=== PATIENT | female | born 1950 | race Caucasian/White ===

== ENCOUNTER → 2020-05-18 13:14 | Outpatient (CLI) | payer MEDICARE, SELFPAY ==
--- NOTE | ~2020-05-18 | MM_ITS ---
EXAMINATION: MM screening kimmy BI w shyla HISTORY: Screening mammogram TECHNIQUE: Craniocaudal and mediolateral oblique 3-D tomosynthesis images were obtained and synthetic 2-D images were generated. CAD analysis was submitted and interpreted. COMPARISON: 11/19/2018 bilateral digital screening mammogram 11/08/2017 bilateral diagnostic digital mammogram and complete bilateral breast ultrasound 08/22/2016 diagnostic left digital mammogram and limited left breast ultrasound 08/16/2016 bilateral digital screening mammogram BREAST PARENCHYMAL COMPOSITION: There are scattered areas of fibroglandular density. FINDINGS: There is a stable circumscribed approximately 9 mm opacity posteriorly in the outer mid lef t breast which is unchanged since 08/16/2016. The benign mammographic features and the stability sinc e 08/16/2016 are consistent with benign process. There is an apparently new 4 mm circumscribed opacity in the posterior central right breast on MLO vi ew, not evidence previous studies; diagnostic right mammogram and targeted right breast ultrasound ar e recommended. There are stable bilateral axillary lymph nodes. No evidence of any other suspicious mass, calcificat ion, or architectural distortion to suggest malignancy in either breast otherwise. There has been no other suspicious interval change. IMPRESSION: 1. New 4 mm right breast mass 2. Diagnostic right mammogram and right breast ultrasound examination are recommended. BI-RADS Category 0: Incomplete: Needs additional imaging evaluation. Reviewed, dictated and finalized at location A. IMPRESSION: 1. New 4 mm right breast mass 2. Diagnostic right mammogram and right breast ultrasound examination are recom mended. BI-RADS Category 0: Incomplete: Needs additional imaging evaluation.
== END ==
PROVIDERS: Visit Provider Nurse Practitioner Obstetrics & Gynecology
DX: Z12.31 Encounter for screening mammogram for malignant neoplasm of breast (principal); R92.8 Other abnormal and inconclusive findings on diagnostic imaging of breast
CPT/HCPCS: 77063; 77067

== ENCOUNTER → 2020-06-11 08:44 | Outpatient (CLI) | payer MEDICARE, OTHER, SELFPAY ==
--- NOTE | ~2020-06-11 | MMUS_ITS ---
EXAMINATION: MM diagnostic mammo unilat RT, US breast RT limited HISTORY: 05/18/2020 report of new 4 mm right breast mass in posterior central right breast on MLO view TECHNIQUE: Additional 3-D tomosynthesis images of the right breast were performed and synthetic 2-D i mages were generated. CAD analysis was submitted and interpreted. High resolution breast ultrasound w as performed. COMPARISON: 05/18/2020 bilateral digital screening mammogram FINDINGS: MAMMOGRAPHIC FINDINGS: An approximately 3 mm circumscribed mass is confirmed in the lower to mid outer right breast. ULTRASOUND: Ultrasound imaging at 6:00-10:00 reveals a 2.2 x 3.6 x 3.5 mm sonolucency consistent with simple cyst at 10:00 8 cm from the nipple, corresponding to the mammographic finding. IMPRESSION: 1. 3.6 mm simple cyst at 10:00 8 cm from nipple; no mammographic evidence of malignancy 2. Routine mammographic screening is recommended. BI-RADS Category 2: Benign finding(s). Reviewed, dictated and finalized at location A. IMPRESSION: 1. 3.6 mm simple cyst at 10:00 8 cm from nipple; no mammographic evidence of ma lignancy 2. Routine mammographic screening is recommended. BI-RADS Category 2: Benign finding(s).
== END ==
PROVIDERS: Visit Provider Nurse Practitioner Obstetrics & Gynecology
DX: R92.8 Other abnormal and inconclusive findings on diagnostic imaging of breast (principal)
CPT/HCPCS: 76642; 77065

== ENCOUNTER 2020-07-30 11:00 | Outpatient (RCR) | payer MEDICARE, OTHER, SELFPAY ==
--- NOTE | 2020-06-01 15:25 | PTOPEVAL ---
PHYSICAL THERAPY EVALUATION AND PLAN OF CARE Thank you for referring Lynette Cano to [facility]. Lynette is scheduled to participate in physical therapy 1x/week for 4 weeks. Please review, sign, date and return this plan of care AAYUSH. I agree with and certify that the following plan of care is medically necessary. Referring Physician Date Attending Provider: David Zuleta, DILCIA Evaluation Diagnosis bilateral knee OA, bilateral shoulder OA Onset 4 years Cause insidious Subjective Information Lynette is here today with Query Text:As Reported By Patient/ bilateral knee and shoulder Family pain. She states that 13 years ago she broke L1 and she notes that the stinging in her legs is likely as a result of that. She notes that the right knee is significantly worse and probably needs replaced but she cannot do that right now. 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 She had an injection in right knee 2 years ago with pain for at least 4 years. States that the shoulders have been bothering her for at least 2 years. Self Report Pain Assessment Bilateral Shoulder(s) Reported Pain Level 4 Pain Description Aching Additional Pain Comments states she feels she is losing mobility; wants to pain her house Bilateral Knee(s) Reported Pain Level 7 Pain Description Aching Pain Frequency Chronic,Continuous Lowest Pain Intensity 3 Greatest Pain Intensity 7 Pain Aggravating Factors Stair Climbing,Walking,Weight Bearing/Standing Pain Behaviors Anxious Pain Relief Interventions Used By Heat,Medication Patient Pain Score Pain Score 7,4: Self Report Upper Extremity Range of Motion Scapular/ Shoulder Range of Motion Bilateral Shoulder Flexion - Active 150 Shoulder Abduction - Active 115 Shoulder Medial Rotation - Active each reaches T12, but right is Query Text:Reach Behind the Back tighter Shoulder Lateral Rotation - Active normal Query Text:Reach Behin
--- NOTE | 2020-06-30 11:58 | PTOPEVAL ---
PHYSICAL THERAPY PLAN OF CARE UPDATE Thank you for referring Lynette Cano to [facility].? The patient is scheduled to be seen for therapy? 1x/week for 4 weeks. Please review, sign, date and return this plan of care AAYUSH. I agree with and certify that the following plan of care is medically necessary. Referring Physician Date Attending Provider: David Zuleta APRN Progress Diagnosis bilateral knee OA, bilateral shoulder OA Onset 4 years Cause insidious Subjective Information Reports that she does not Query Text:As Reported By Patient/ notice a big difference in her Family shoulders. Shoulders hurt first thing in the morning but not enough to take medication . Enjoys the manual therapy. Worse pain is at night when trying to sleep. Knees: since she has had injection to right knee it seems to be a lot better. the Left still hurts but not as much. Self Report Pain Assessment Bilateral Shoulder(s) Reported Pain Level 4 Pain Description Aching Additional Pain Comments more than left shoulder than the right Bilateral Knee(s) Reported Pain Level 2 Pain Description Aching Pain Frequency Chronic,Continuous Pain Aggravating Factors Stair Climbing,Walking,Weight Bearing/Standing Pain Behaviors Anxious Additional Pain Comments had an injection to right knee on 06/18/2020 Pain Score Pain Score 4,2: Self Report Upper Extremity Range of Motion Scapular/ Shoulder Range of Motion Bilateral Shoulder Flexion - Active 166 Shoulder Abduction - Active 160 Shoulder Medial Rotation - Active each reaches T10 Query Text:Reach Behind the Back Lower Extremity Range of Motion Knee Range of Motion Bilateral Knee Flexion Range of Motion - Active 122 Knee Flexion Range of Motion - Passive 0 Lower Extremity Muscle Strength Testing Hip Strength Bilateral Hip Flexion Strength 4+ Good + Hip Extension Strength 4- Good - Hip Abduction Strength 4- Good - Knee Strength Bilateral Knee Flexion Strength 4+ Good + Knee Extension Strength 4+ Good + Upper Extremity Muscle Strength Testing Scapular/Shoulder Bilateral Shoulder Flexion Strength 3+ Fair + Shoulder Extension Strength 4- Good - Shoulder Abduction Strength 3+ Fair + Shoulder Medial Rotation Strength
--- NOTE | 2020-07-23 07:46 | PCPTNOTE ---
Patient called & cancelled scheduled appointment this date no reason given.
--- NOTE | 2020-07-30 11:38 | PTOPEVAL ---
PHYSICAL THERAPY DISCHARGE NOTE Thank you for referring Lynette Cano to [facility].? Please review, sign, date and return this plan of care AAYUSH. I agree with and certify that the following plan of care is medically necessary. Referring Physician Date Attending Provider: David Zuleta, DILCIA Discharge Diagnosis bilateral knee OA, bilateral shoulder OA Onset 4 years Cause insidious Subjective Information States that the right knee Query Text:As Reported By Patient/ injection is not working Family anymore. She went shopping and the knee is really bother her now. Shoulders: still hurt. States exercising helps because she if goes a day without the exercises they do hurt a little more. Self Report Pain Assessment Bilateral Shoulder(s) Reported Pain Level 4 Pain Description Aching Additional Pain Comments more than left shoulder than the right Bilateral Knee(s) Reported Pain Level 2 Pain Description Aching Pain Frequency Chronic,Continuous Pain Aggravating Factors Stair Climbing,Walking,Weight Bearing/Standing Pain Behaviors Anxious Pain Score Pain Score 4,2: Self Report Upper Extremity Range of Motion Scapular/ Shoulder Range of Motion Bilateral Shoulder Flexion - Active 166 Shoulder Abduction - Active 160 Shoulder Medial Rotation - Active each reaches T10 Query Text:Reach Behind the Back Lower Extremity Muscle Strength Testing Hip Strength Bilateral Hip Flexion Strength 4+ Good + Hip Extension Strength 4- Good - Hip Abduction Strength 4 Good Knee Strength Bilateral Knee Flexion Strength 5 Normal Knee Extension Strength 5 Normal Upper Extremity Muscle Strength Testing Scapular/Shoulder Bilateral Shoulder Flexion Strength 4- Good - Shoulder Abduction Strength 4- Good - Shoulder Medial Rotation Strength 4+ Good + Shoulder Lateral Rotation Strength 4+ Good + Balance Assessment 5 Time Sit to Stand Time in Seconds 13.56 5 Time Sit to Stand Comments no arm rests, no knee pain Query Text:Normative Data: If Greater 1month ago = 20.01seconds; Than 15 Seconds, 74% Increase Risk for Recurrent Falls PT Clinical Summary Claribel has met or nearly met her functional goals. She continues to report pain in bilateral shoulders, but also
== END 2020-08-17 13:58 | disposition home or self-care (01) ==
LOC: ANHPT 11:00
PROVIDERS: PCP Nurse Practitioner; Visit Provider Nurse Practitioner
DX: M25.511 Pain in right shoulder (principal); M25.512 Pain in left shoulder; M25.561 Pain in right knee; M25.562 Pain in left knee
CPT/HCPCS: 97110; 97140; 97162

== ENCOUNTER 2021-07-14 08:04 | Outpatient (CLI) | payer MEDICARE, OTHER, SELFPAY ==
--- NOTE | 2021-07-14 12:22 | WPDPFTINT ---
PFT Procedure Performed PFT Procedure Performed Spirometry with Pre/Post Bronchodilator Plethysmography (Lung Vol) Diffusing Cap (DLCO) Flow Vol Loop PFT Interpretation This is a pulmonary function test with pre and post-bronchodilator spirometry, plethysmography and diffusing capacity. The test was performed and results interpreted in accordance with the 2019 and 2005 ATS/ERS Task Force guidelines respectively using the Global Lung Function Initiative-2012 reference equations. Patient demonstrated good effort and cooperation. Reproducibility criteria were met. The quality of the pre bronchodilator spirometry maneuver was Grade A and post bronchodilator spirometry maneuver was Grade A. Findings: Spirometry: The contour the inspiratory and expiratory flow tracing are normal. The pre bronchodilator FVC is 2.63 L, 79% predicted. The pre bronchodilator FEV1 is 2.04 L, 79% predicted. The FEV1: FVC ratio 78%. The post bronchodilator FVC is 2.61 L, representing 1% decrease. The post bronchodilator FEV1 is 2.14 L, representing a 5% increase. Plethysmography: The total lung capacity is 4.28 L, 76% predicted. The functional residual capacity is 1.69 L, 59% predicted. The residual volume is 1.43 L, 70% predicted. Diffusing capacity: The absolute diffusion capacity is 14.0, 60% predicted. The diffusing capacity corrected for alveolar volume is 3.68, 84% predicted. Impression: The spirometry is normal without evidence of an obstructive abnormality. There is no significant improvement after inhaling a single dose of albuterol. The lung volumes are normal. The absolute diffusing capacity is moderately decreased and normalizes when corrected for alveolar volume. There are no prior studies for comparison
--- NOTE | 2021-07-14 12:25 | WPDSIXMINUTE ---
Six Minute Walk Procedure Procedure Performed Pulmonary Stress Test (6 min walk) Six Minute Walk This is a 6 minute walk test. The test was performed and interpreted in accordance with the 2014 ERS/ATS task force guidelines. Findings: The patient's resting room air oxygen saturation measured by pulse oximetry was 94% and her heart rate was 113 bpm. Patient ambulated for 366 meters and oxygen saturation remained 93 to 95%. Heart rate at the end of the study was 105 bpm. The patient did not qualify for supplemental oxygen at rest or with ambulation. There are no prior studies for comparison.
== END 2021-07-14 08:05 | disposition home or self-care (01) ==
PROVIDERS: PCP Internal Medicine; Visit Provider Internal Medicine Critical Care Medicine
DX: R06.02 Shortness of breath (principal)
CPT/HCPCS: 94060; 94618; 94726; 94729

== ENCOUNTER 2021-11-05 07:43 | Outpatient (CLI) | payer MEDICARE, OTHER, SELFPAY ==
--- NOTE | 2021-11-05 08:00 | ECHO_ITS ---
Patient Info Name: Lynette Cano Age: 71 years : 1950 Gender: Female Ht: 64 in Wt: 190 lbs BSA: 2.01 m2 HR: 77 bpm BP: 148 / 84 mmHg Technical Quality: Fair Exam Date: 11/05/2021 8:11 AM Exam Location: [facility] Patient Status: Outpatient Admit Date: 11/05/2021 Staff Ordering Physician: Vidhya Curtis MD Activities Director Scouting: Caroline Lucas RDCS Attending Provider: Vidhya Curtis MD Referring Physician: Ever MADRID; Exam Type: CA echo doppler color flow Study Info Indications R06.02 - Shortness of breath Complete two-dimensional, color flow and Doppler transthoracic echocardiogram is performed. Summary 1. Complete two-dimensional, color flow and Doppler transthoracic echocardiogram is performed. 2. Left ventricular chamber dimension is normal. 3. Left ventricular systolic function is normal, estimated at 60-65%. 4. The left ventricular diastolic function is grade I diastolic dysfunction. 5. Left atrial chamber dimension is mildly enlarged. 6. No pulmonary hypertension, estimated pulmonary arterial systolic pressure is 17 mmHg. Left Ventricle Tissue doppler E/e' is not performed. Left ventricular chamber dimension is normal. Left ventricular systolic function is normal, estimated at 60-65%. The left ventricular diastolic function is grade I diastolic dysfunction. Right Ventricle Right ventricular chamber dimension is normal. Right ventricular systolic function is normal. Left Atria Left atrial chamber dimension is mildly enlarged. Right Atria Right atrial chamber dimension is normal. Aortic Valve The aortic valve is trileaflet. There is no aortic valve stenosis. There is no aortic valve regurgitation. Pulmonic Valve There is no pulmonic regurgitation. Mitral Valve There is no mitral valve stenosis. There is no mitral valve regurgitation. Tricuspid Valve There is no tricuspid valve regurgitation. No pulmonary hypertension, estimated pulmonary arterial systolic pressure is 17 mmHg. Pericardium/Pleural There is no pericardial effusion. Inferior Vena Cava Normal inferior vena cava with >50% collapse upon inspiration consistent with normal right atrial pressure, 5 mmHg. Aorta The aortic root size at the sinus of Valsalva is normal. Left Ventricular Outflow Tract Name Value Normal LVOT 2D LVOT Diameter 1.9 cm LVOT Doppler LVOT Peak Gradient 4 mmHg LVOT Mean Gradient 2 mmHg LVOT VTI 21 cm LVOT VTI/AV VTI Ratio 0.9 LVOT Stroke Volume 57 ml LVOT CO 4.3 l/min LVOT CI 2.1 l/min/m2 Pulmonic Valve Name Value Normal RVOT Doppler RVOT Peak Gradient 2 mmHg PV Doppler
== END 2021-11-05 07:44 | disposition home or self-care (01) ==
LOC: ANHCARD 07:44
PROVIDERS: PCP Internal Medicine; Visit Provider Internal Medicine Critical Care Medicine
DX: R06.02 Shortness of breath (principal)
CPT/HCPCS: 93306

== ENCOUNTER 2021-12-14 12:54 | Emergency (ER) | payer MEDICARE, OTHER, SELFPAY ==
[2021-12-14 13:08] VITALS: BP 142/91; PULSE 106; RESP 16; TEMP 36.5; O2SAT 97
--- NOTE | 2021-12-14 13:10 | ED.LOWEXIN ---
HPI - Extremity Injury (Lower) General Chief Complaint: Extremity Injury, Lower Stated Complaint: right knee pain Time Seen by Provider: 12/14/21 13:15 Source: patient, RN notes reviewed and old records reviewed Mode of arrival: ambulatory Limitations: no limitations History of Present Illness HPI Narrative: [facility] pain. Reports 9 days ago had increased activity walking most of the day on concrete sidewalks. Then sitting in a car for 2 days. Right knee usually feels better with rest. Reports walking some yesterday resting last evening. Increased pain today with movement. Usually takes Aleve and Aleve p.m. for arthritic pain. Pain medicine usually helps. Patient is concerned that right knee pain is worse and is concerned loss of cartilege/[id number] is causing increased right knee pain. Patient has an appointment for an evaluation for right knee replacement in 2 weeks. Some parts of this dictation were generated by voice recognition software and may contain typographical and/or grammatical inaccuracies. Related Data Home Medications Medication Instructions Recorded Confirmed raloxifene 60 mg tablet 60 mg PO DAILY 10/09/20 12/14/21 gabapentin 100 mg capsule 100 mg PO DAILY cap 06/24/21 12/14/21 meloxicam 15 mg tablet 15 mg PO DAILY tablet 08/13/21 12/14/21 Allergies Allergy/AdvReac Type Severity Reaction Status Date / Time cefaclor Allergy Unknown Hives Verified 11/18/21 13:01 Sulfa (Sulfonamide Allergy Unknown rash Verified 11/18/21 13:01 Antibiotics) Review of Systems Review of Systems: CONSTITUTIONAL: Denies fever, chills, or sweats. EYES: Denies visual changes, redness, or discharge. ENT: Denies rhinorrhea, congestion, sore throat, or otalgia. CARDIOVASCULAR: Denies chest pain, palpitations, or edema. RESPIRATORY: Denies cough or dyspnea. GASTROINTESTINAL: Denies abdominal pain, nausea, vomiting, or diarrhea. GENITOURINARY: Denies dysuria or hematuria. SKIN: Denies rash or itching. MUSCULOSKELETAL: Denies back pain. Increased right knee pain with activity, minimal pain relief after rest. Right knee swelling. History of osteoarthritis. NEUROLOGIC: Denies headache, numbness, or weakness. PSYCHIATRIC: Denies anxiety or depression. All other systems reviewed are negative, except as documented in HPI. All systems reviewed & are unremarkable except as noted in HPI and below PMFSH Past Medical History Medical History BMI 34.0-34.9,adult Essential (primary) hypertension Mixed hyperlipidemia Obstructive sleep apnea Primary osteoarthritis of both knees Recurrent major depressive disorder Family History Family History Grandparent Family history of malignant neoplasm of breast Father Family history of heart disease in male family member before age 55 Other Diabetes mellitus Family history of arthritis Family history of malignant neoplasm Hypertension Social History Social History Smoking status: Never smoker Second hand tobacco smoke exposure: No Alcohol intake: current Alcohol use details: social Substance use: never Substance use type: does not use Comments At the time of my signature, I reviewed and agree with the nursing past medical, surgical, social, and family history. There is no relevant family history pertinent to the patient complaint. Exam Narrative: GENERAL: This is a well-nourished, well-developed female, in no apparent distress. Uncomfortable due to right knee pain. HEAD: normocephalic, atraumatic. EYES: Sclera clear/white. Vision is grossly intact. EARS: External ears normal, auditory canals clear and without drainage. THROAT: Mucous membranes moist. NECK: Neck supple, full range of motion. CARDIOVASCULAR: Regular rate and rhythm without murmur
== END 2021-12-14 13:58 | disposition home or self-care (01) ==
PROVIDERS: Emergency Provider Nurse Practitioner Family
DX: M25.461 Effusion, right knee (principal); I10 Essential (primary) hypertension; E78.2 Mixed hyperlipidemia; G47.33 Obstructive sleep apnea (adult) (pediatric); M17.0 Bilateral primary osteoarthritis of knee
CPT/HCPCS: 99213; G0463

== ENCOUNTER 2022-01-27 13:58 | Outpatient (CLI) | payer MEDICARE, OTHER, SELFPAY ==
--- NOTE | ~2022-01-27 | CT_ITS ---
EXAMINATION: CT diagnostic chest wo con EXAM DATE: 01/27/2022 14:20 INDICATION: S22.39XA - Fracture of one rib, unspecified side, initial... TECHNIQUE: Spiral CT of the chest without contrast. Axial, coronal and sagittal images of the chest were reviewed. Coronal maximum intensity pixel images of chest reviewed. The dose-length product ( DLP) for this examination was 230.99 mGy-cm. The exposure was tailored according to patient size (au to mA exposure control), and iterative reconstruction (ASIR) was used as additional dose reduction te chnique. There is no prior study for comparison. FINDINGS: The lungs are clear. There are no pleural or pericardial effusions. Tracheobronchial t ree is patent. There is no mediastinal, hilar or axillary lymphadenopathy. There is no pneumothor ax. Heart normal in size. There is moderate coronary arterial calcification, arterial sclerosis. Upper abdomen is unremarkable. There is mild thoracic spondylosis without osteoblastic or osteolyt ic lesions identified. Chronic mild burst fracture of L1. There are subacute right 5th, 6th rib fra ctures anterolaterally. IMPRESSION: 1. Subacute right 5th, 6th rib fractures anterolaterally. 2. Clear lungs. Reviewed, dictated and finalized at location A.
== END 2022-01-27 13:59 | disposition home or self-care (01) ==
PROVIDERS: PCP Internal Medicine; Visit Provider Internal Medicine
DX: S22.41XA Multiple fractures of ribs, right side, initial encounter for closed fracture (principal); Z80.3 Family history of malignant neoplasm of breast
CPT/HCPCS: 71250

== ENCOUNTER → 2022-06-16 16:49 | Outpatient (CLI) | payer MEDICARE, OTHER, SELFPAY ==
--- NOTE | ~2022-06-16 | XR_ITS ---
EXAMINATION: XR tibia fibula RT 2V DATE: 06/16/2022 17:48 INDICATION: Anterior right tibia/fibular pain TECHNIQUE: AP and lateral views of the right tibia and fibula were obtained. COMPARISON: None. FINDINGS: Right total knee arthroplasty with patellar resurfacing which appears well seated in near-anatomic al ignment. No fracture. Joint space at the right ankle and visualized hindfoot appear normal. Soft tiss ues are unremarkable. IMPRESSION: 1. Expected appearance of a right total knee arthroplasty. Otherwise unremarkable right lower leg rad iographs. Reviewed, dictated and finalized at location A. IMPRESSION: 1. Expected appearance of a right total knee arthroplasty. Otherwise unremarkab le right lower leg radiographs.
== END ==
PROVIDERS: PCP Internal Medicine; Visit Provider Internal Medicine
DX: M79.604 Pain in right leg (principal); Z96.651 Presence of right artificial knee joint
CPT/HCPCS: 73590

== ENCOUNTER → 2022-06-28 11:19 | Outpatient (CLI) | payer MEDICARE, OTHER, SELFPAY ==
--- NOTE | ~2022-06-28 | US_ITS ---
EXAMINATION: US soft tissue LE RT DATE: 06/28/2022 11:37 INDICATION: Right lower leg pain. TECHNIQUE: Multiple grayscale and Doppler ultrasound images of the right lower limb were obtained. COMPARISON: Right tibia and fibula radiographs 06/16/2022 FINDINGS: There is no abnormal mass in the patient's area of concern in anterior right lower leg. IMPRESSION: 1. No abnormality in the patient's area of concern in anterior right lower leg. Reviewed, dictated and finalized at location A.
== END ==
PROVIDERS: PCP Internal Medicine; Visit Provider Internal Medicine
DX: M79.604 Pain in right leg (principal)
CPT/HCPCS: 76882

== ENCOUNTER 2023-05-17 16:30 | Emergency (ER) | payer MEDICARE, OTHER, SELFPAY ==
--- NOTE | ~2023-05-17 | XR_ITS ---
[XR ribs LT 2V w CXR 2V ] INDICATION: Left rib pain after recent fall TECHNIQUE: Frontal projection of the upper left ribs, frontal projection of the lower left ribs, obli que projection of all the left ribs, frontal inspiratory chest x-ray for interpretation. FINDINGS: There is an acute nondisplaced left ninth rib fracture. There are no soft tissue abnormalit y seen. The lungs are clear. There is moderate osteoarthritis of the shoulders. IMPRESSION: 1: Acute nondisplaced left ninth rib fracture. Reviewed, dictated and finalized at location A.
[2023-05-17 16:45] VITALS: BP 138/75; PULSE 95; RESP 18; TEMP 36.9; O2SAT 97
--- NOTE | 2023-05-17 17:24 | ED.FALL ---
HPI - Fall General Chief Complaint: Fall Stated Complaint: Flank Pain Source: patient Mode of arrival: ambulatory Limitations: no limitations History of Present Illness HPI Narrative: 73year old female who [id number] to express care with complaints of falling on Monday outside when she was chasing after dog on incline in yard. Patient states she had caught dog prior to fall and actualy fell with dog in her arms. Patient reports falling on left knee and on her left side with pain to area of left anterior ribs below breast area. Patient denies hitting her head or any LOC at time of fall. Patient denies any pain to her knee no swelling redness or bruising noted. Patient reports that she is suppose to have ear surgery on Monday in [facility] and she can't take any arthritis medication or any Ibuprofen or Aleve for her discomfort. MD complaint: fall Onset (ago): day(s) (4) Fall from: standing Fall witnessed: no Place fall occurred: other (outside) Loss of consciousness: none Severity scale (1-10): 8 Associated symptoms (after fall): other (pain left anterior ribs) Related Data Home Medications Medication Instructions Recorded Confirmed fluticasone propionate 50 2 spray intranasal DAILY 05/17/22 05/17/23 mcg/actuation nasal spray,suspension paroxetine HCl 40 mg tablet mg PO 05/17/23 05/17/23 Allergies Allergy/AdvReac Type Severity Reaction Status Date / Time cefaclor Allergy Unknown Hives Verified 05/17/23 17:01 Sulfa (Sulfonamide Allergy Unknown rash Verified 05/17/23 17:01 Antibiotics) Review of Systems Review of Systems: CONSTITUTIONAL: Denies fever, chills, or sweats. EYES: Denies visual changes, redness, or discharge. ENT: Denies rhinorrhea, congestion, sore throat, or otalgia. CARDIOVASCULAR: Denies chest pain, palpitations, or edema. RESPIRATORY: Denies cough or dyspnea. GASTROINTESTINAL: Denies abdominal pain, nausea, vomiting, or diarrhea. GENITOURINARY: Denies dysuria or hematuria. SKIN: Denies rash or itching. MUSCULOSKELETAL: Denies back pain, joint pain, or myalgia, reports left sided anterior rib pain NEUROLOGIC: Denies headache, numbness, or weakness. PSYCHIATRIC: positive history of anxiety or depression. All systems reviewed & are unremarkable except as noted in HPI and below PMFSH Past Medical History Medical History BMI 34.0-34.9,adult Essential (primary) hypertension Fracture of L1 vertebra Mixed hyperlipidemia Obstructive sleep apnea Primary osteoarthritis of both knees Recurrent major depressive disorder Surgical History Surgical History H/O tubal ligation History of tonsillectomy History of total right knee replacement Family History Family History Grandparent Family history of malignant neoplasm of breast Father Family history of heart disease in male family member before age 55 Other Diabetes mellitus Family history of arthritis Family history of malignant neoplasm Hypertension Social History Social History Smoking status: Never smoker Second hand tobacco smoke exposure: No Alcohol intake: never Substance use: never Substance use type: does not use Lack of Transportation: No Lack of Food: Never True Current Housing: I Have Housing Concerned About Future Housing: No Difficulty Paying Gas/Electric Bills: No Difficulty Paying for Meds: No Currently Unemployed: No Education: High School Diploma/GED Difficulty w/ Childcare or Family Care: No Comments At time of signature, agree with nursing past medical, surgical, social and family history. There is no relevant family history pertinent to the presenting complaint Exam Narrative: GENERAL: Well-appearing, well-nourished, and in no acute distress. HEAD: Normoce
== END 2023-05-17 17:57 | disposition home or self-care (01) ==
PROVIDERS: Emergency Provider Registered Nurse; PCP Family Medicine
DX: S22.32XA Fracture of one rib, left side, initial encounter for closed fracture (principal); W19.XXXA Unspecified fall, initial encounter; I10 Essential (primary) hypertension; E78.2 Mixed hyperlipidemia; M17.0 Bilateral primary osteoarthritis of knee; F33.9 Major depressive disorder, recurrent, unspecified; Z96.651 Presence of right artificial knee joint
CPT/HCPCS: 71046; 71100; 99213; G0463

== ENCOUNTER 2023-09-02 20:12 | Emergency (ER) | payer MEDICARE, OTHER, SELFPAY ==
[2023-09-02] VITALS (23 sets, daily range): BP systolic 138–164; BP diastolic 71–93; PULSE 70–103; RESP 11–22; TEMP 36.1; O2SAT 92–99
--- NOTE | ~2023-09-02 | CT_ITS ---
EXAMINATION: CT brain wo/w con DATE: 09/02/2023 23:49 INDICATION: Dizziness. TECHNIQUE: Computed tomography (CT) of the head was performed without and with 100 mL Omnipaque 350 i ntravenous contrast. The mA was adjusted according to patient size. Iterative reconstruction techniqu e was employed. The dose-length product was 1210.67 mGy-cm. COMPARISON: None FINDINGS: There is no intracranial hemorrhage, acute infarction, or abnormal intracranial mass lesion . The ventricles are normal in size. There are likely changes of ocular lens replacement surgeries. T here is mild mucosal thickening in the ethmoid sinuses. There is a right-sided cochlear implant. Ther e are changes of right mastoidectomy with near complete opacification of the post mastoidectomy space . IMPRESSION: 1. Normal brain. Reviewed, dictated and finalized at location E. UREMENT SPECIALIST IMPRESSION: 1. Normal brain.
[2023-09-02] MEDS: SODIUM CHLORIDE 0.9% IV 1,000 ML 999 ML IV CONT (20:40)
[2023-09-02] MEDS: MECLIZINE HCL 25 MG TABLET PO (20:40)
[2023-09-02] MEDS: PROCHLORPERAZINE EDISYLATE 10 MG/2 ML VIAL IV PUSH (20:40)
[2023-09-02 20:55] LABS: Basophils Percent Auto 0.3 % (0.2-1.2); Eosinophils Absolute Auto 0.1 K/mm3 (0-0.3); Eosinophils Percent Auto 0.4 % (0-4.4); Hematocrit 39.1 % (37.0-47.0); Hemoglobin 12.4 g/dL (12.0-15.0); Immature Granulocyte Absolute 0.03 K/mm3 (0.00-0.031); Immature Granulocyte Percent A 0.3 % (0-0.5); Lymphocytes Absolute Auto 1.32 K/mm3 (0.9-3.2); Lymphocytes Percent Auto 11.2 % (18.3-44.2); Mean Corpuscular HGB Conc 31.7 g/dl (32-36); Mean Corpuscular Hemoglobin 29.3 pg (26-34); Mean Corpuscular Volume 92.4 fl (80-100); Mean Platelet Volume 10.9 fl (7.4-10.4); Monocytes Absolute Auto 0.5 K/mm3 (0.1-0.6); Monocytes Percent Auto 4.1 % (2.6-8.5); Neutrophils Absolute Auto 9.9 K/mm3 (1.3-6.7); Neutrophils Percent Auto 83.7 % (45.5-73.1); Platelet Count Result 316 k/mm3 (150-375); Red Blood Count 4.23 M/mm3 (4.2-5.4); Red Cell Distribution Width 13.4 % (11.5-14.5); White Blood Count 11.8 K/mm3 (4.5-10.0)
[2023-09-02 21:07] LABS: Lactic Acid Reflex 2.8 mmol/L (0.7-2.0)
[2023-09-02 21:08] LABS: Alanine Aminotransferase 28 U/L (6-35); Albumin Level 4.1 g/dL (3.5-5.1); Alkaline Phosphatase 91 U/L (38-126); Anion Gap 12 mmol/L (8-16); Aspartate Amino Transferase 26 U/L (14-36); Bilirubin,Total 0.6 mg/dL (0.2-1.3); Blood Urea Nitrogen 23 mg/dL (7-17); Calcium 9.2 mg/dL (8.4-10.2); Carbon Dioxide 26 mmol/L (22-30); Chloride 100 mmol/L (98-107); Estimated CRCL calculation 76 ml/min; Estimated Glomerular Filt Rate > 60; Glucose 160 mg/dL (65-110); Lipase 55 U/L (23-300); Potassium 4.2 mmol/L (3.4-5.0); Sodium 138 mmol/L (137-145)
--- NOTE | 2023-09-02 21:39 | ED.GENADULT ---
HPI - General Adult General Chief complaint: Nausea/Vomiting/Diarrhea Stated complaint: N/V/D Time Seen by Provider: 09/02/23 20:25 History of Present Illness HPI narrative: Patient 73-year-old female who presents the emergency department with chief complaint of dizziness. Patient reports that she had a cochlear implant this week at [facility] and reports that that today she started having vertigo symptoms that feels as though she is spinning. The patient states that she also felt nauseated she talked to her surgeon that did the cochlear implant and they have called in some Zofran and also a medication for vertigo but the patient states the pharmacy was closed. Patient states she was given Zofran by EMS Related Data Home Medications Medication Instructions Recorded Confirmed fluticasone propionate 50 2 spray intranasal DAILY 05/17/22 06/12/23 mcg/actuation nasal spray,suspension Allergies Allergy/AdvReac Type Severity Reaction Status Date / Time cefaclor Allergy Unknown Hives Verified 09/02/23 20:16 Sulfa (Sulfonamide Allergy Unknown rash Verified 09/02/23 20:16 Antibiotics) Review of Systems Review of Systems: A 10 system review of systems was completed on the patient and is negative except for what is stated in the HPI. Nursing and ancillary documentation was reviewed. [facility] Past Medical History Medical History BMI 34.0-34.9,adult Essential (primary) hypertension Fracture of L1 vertebra Mixed hyperlipidemia Obstructive sleep apnea Primary osteoarthritis of both knees Recurrent major depressive disorder Surgical History Surgical History H/O tubal ligation History of tonsillectomy History of total right knee replacement Family History Family History Grandparent Family history of malignant neoplasm of breast Father Family history of heart disease in male family member before age 55 Other Diabetes mellitus Family history of arthritis Family history of malignant neoplasm Hypertension Social History Social History Smoking status: Never smoker Second hand tobacco smoke exposure: No Alcohol intake: never Substance use: never Substance use type: does not use Lack of Transportation: No Lack of Food: Never True Current Housing: I Have Housing Concerned About Future Housing: No Difficulty Paying Gas/Electric Bills: No Difficulty Paying for Meds: No Currently Unemployed: No Education: High School Diploma/GED Difficulty w/ Childcare or Family Care: No Exam Narrative: GENERAL: Well-appearing, well-nourished, and in no acute distress. HEAD: Normocephalic, atraumatic. EYES: PERRLA and EOMI. ENT: Nares clear, no rhinorrhea or epistaxis. Mucous membranes moist. Incision behind the right ear is intact no erythema no purulent drainage NECK: Supple. CHEST: Clear to auscultation. No respiratory distress. HEART: Regular rate and rhythm. No murmur heard. Normal peripheral pulses. ABDOMEN: Soft, nontender, nondistended, normal active bowel sounds. EXTREMITIES: Normal range of motion. No edema. SKIN: Warm, dry, no rash. NEURO: No focal deficits. Alert and oriented x3. PSYCH: Normal mood and affect. Course Vital Signs Vital signs: Vital Signs Temperature 36.1 C L 09/02/23 20:08 Pulse Rate 70 09/02/23 20:08 Respiratory Rate 17 09/02/23 20:08 Blood Pressure 164/71 H 09/02/23 20:08 Pulse Oximetry 99 09/02/23 20:08 Oxygen Delivery Room Air 09/02/23 20:08 Temperature 36.1 C L 09/02/23 20:08 Pulse Rate 103 H 09/03/23 02:34 Respiratory Rate 22 H 09/03/23 02:34 Blood Pressure 163/91 H 09/03/23 02:34 Pulse Oximetry 99 09/03/23 02:34 Oxygen Delivery Room Air 09/02/23 20:08
--- NOTE | 2023-09-02 21:48 | PC.NURSE ---
Attempted to get patient up for urine specimen, patient was still unsteady and had dizziness and nausea with sitting position and movement. Patient was not able to provide sample. ERP notified of patients continued symptoms.
[2023-09-02] MEDS: diazePAM INJ (*CRX) 10 MG/2 ML SYRINGE 5 MG IV PUSH (22:04)
[2023-09-02 23:21] LABS: Appearance Urine Turbid (Clear); Bacteria Urine None Seen /hpf; Bilirubin Urine Negative (Negative); Blood Urine Negative (Negative); Color Urine Yellow (Yellow); Glucose Urine UA Negative (Negative); Ketones Urine Negative (Negative); Leukocyte Esterase Ur Negative LEU/UL (Negative); Nitrate Urine Negative (Negative); Non Pathogenic Casts 0-2; Protein Urine Negative (Negative); RBC Urine 0-2 /hpf (0-2); Specific Grav Ur 1.015 (1.001-1.035); Squamous Epithelial Cell Urine None seen /hpf (Few); Urobilinogen Urine 0.2 mg/dL (<2.0); WBC Urine 0-5 /hpf; pH Urine 5.5 (5.0-9.0)
[2023-09-02 23:23] LABS: Add Urine Microscopic? YES
[2023-09-02 23:53] LABS: Reflex Lactic Acid Yes or No Add Lactic
[2023-09-03] VITALS (35 sets, daily range): BP systolic 123–163; BP diastolic 51–91; PULSE 80–108; RESP 12–22; O2SAT 92–99
--- NOTE | 2023-09-03 00:45 | PC.NURSE ---
Patient states she is still dizzy, unable to sit up without too dizzy and nauseous. ERP notified.
--- NOTE | 2023-09-03 01:37 | ECG_ITS ---
Measurements Intervals [place] Rate: 84 P: 46 VT: 126 QRS: 33 QRSD: 110 T: 47 QT: 400 QTc: 475 Interpretive Statements SINUS RHYTHM NONSPECIFIC ST & T-WAVE ABNORMALITY- DIFFUSE LEADS BASELINE ARTIFACT- I, II, III, AVR, AVL, AVF, V1, V4-V6 BORDERLINE ECG NO PREVIOUS ECG AVAILABLE FOR COMPARISON Electronically Signed On 09-03-2023 6:29:08 WELD ENGINEER by Yeison Sosa D.O.
[2023-09-03] MEDS: SODIUM CHLORIDE 0.9% IV 1,000 ML 999 ML IV CONT (02:36)
[2023-09-03] MEDS: ONDANSETRON INJ 4 MG/2 ML VIAL IV PUSH (02:39)
== END 2023-09-03 05:01 | disposition short-term general hospital (02) ==
PROVIDERS: Emergency Provider Emergency Medicine; PCP Nurse Practitioner Family
DX: R42 Dizziness and giddiness (principal); R11.2 Nausea with vomiting, unspecified; Z96.21 Cochlear implant status; I10 Essential (primary) hypertension; E78.2 Mixed hyperlipidemia; G47.33 Obstructive sleep apnea (adult) (pediatric); M17.0 Bilateral primary osteoarthritis of knee; F33.9 Major depressive disorder, recurrent, unspecified; Z96.651 Presence of right artificial knee joint
CPT/HCPCS: 36415; 70470; 80053; 81001; 83605; 83690; 85025; 93005; 96361; 96374; 96375; 99285; A9270; J0780; J2405; J3360; J7030; Q9967